=== PATIENT | female | born 1940 | race African-American/Black ===

== ENCOUNTER 2018-05-09 12:36 | Emergency (ER) | payer MEDICARE, BC ==
[~2018-05-09] VITALS: Ht 162.6 cm; Wt 86.2 kg
[2018-05-09] MEDS ORDERED: CAL-CITRATE PL1 EAC1 PO (12:52)
[2018-05-09] MEDS ORDERED: SYNTHROID100 MCG ORAL (12:52)
[2018-05-09] MEDS ORDERED: DICYCLOMINE HCL10 MG PO (12:52)
[2018-05-09] MEDS ORDERED: OMEPRAZOLE20 M2 ORAL (12:52)
[2018-05-09] MEDS ORDERED: ATORVASTATIN CA10 MG ORAL (12:52)
[2018-05-09] MEDS ORDERED: METOPROLOL TART50 M1 ORAL (12:52)
[2018-05-09] MEDS ORDERED: XARELTO10 MG ORAL (12:52)
[2018-05-09 13:41] LABS: APPEARANCE,URINE CLEAR; COLOR,URINE PALE YELLOW; PH,URINE 6 (4.5-8.0)
[2018-05-09 13:42] LABS: BILIRUBIN, URINE NEGATIVE (NEGATIVE); GLUCOSE, URINE (UA) NEGATIVE (NEGATIVE); KETONES,URINE NEGATIVE (NEGATIVE); LEUKOCYTE ESTERASE ,URINE 2+ (NEGATIVE); NITRITE,URINE NEGATIVE (NEGATIVE); PROTEIN,URINE NEGATIVE (NEGATIVE); UROBILINOGEN,URINE NORMAL MG/DL (0.0-1.0)
[2018-05-09 13:44] LABS: BASOPHILS % (AUTO) 0.9 % (0.0-2.0); EOSINOPHILS % (AUTO) 2.5 % (0.0-3.0); HEMATOCRIT 41.1 % (37.0-47.0); LYMPHOCYTES % (AUTO) 25.6 % (20.0-45.0); MEAN CORPUSCULAR VOLUME 83 FL (80-99); PLATELET COUNT 280 K/UL (150-450); RED BLOOD COUNT 4.94 M/UL (4.20-5.40); RED CELL DISTRIBUTION WIDTH 13.2 % (11.6-14.8); WHITE BLOOD COUNT 8.8 K/UL (4.8-10.8)
[2018-05-09 13:56] LABS: ANION GAP 7 mmol/L (5-15); BLOOD UREA NITROGEN 22 mg/dL (7-18); CALCIUM 10.2 MG/DL (8.5-10.1); CARBON DIOXIDE 30 MMOL/L (21-32); CHLORIDE 103 MMOL/L (98-107); CREATININE 1.3 MG/DL (0.55-1.30); POTASSIUM 4.1 MMOL/L (3.5-5.1); SODIUM 140 MMOL/L (136-145)
[2018-05-09 14:01] LABS: ALANINE AMINOTRANSFERASE 18 U/L (12-78); ALBUMIN 3.4 G/DL (3.4-5.0); ALBUMIN/GLOBULIN RATIO 0.6 (1.0-2.7); ALKALINE PHOSPHATASE 89 U/L (46-116); ASPARTATE AMINO TRANSFERASE 16 U/L (15-37); BILIRUBIN,TOTAL 0.5 MG/DL (0.2-1.0)
--- NOTE | 2018-05-09 14:12 | Emergency Room Report ---
History of Present Illness General Chief Complaint: Lower Extremity Injury Source: Patient (Bryce Anderson) Present Illness HPI 77-year-old female with significant history of hypertension controlled with amlodipine and metoprolol here complaining of pain in the right foot and ankle 3 days. Patient reports she fell on her right ankle 3 months ago, never seek any medical attention, started going to podiatrists and month ago and has been taking Motrin and Voltaren gel with some improvement. She denies any recent trauma or injury. Patient is rating the pain 6 out of 10, intermittent, worsening when walking, without radiation. Denies tingling or numbness. Denies tenderness, chest pain, SOB, palpitations, abdominal pain, nausea vomiting. She denies history of gallops. Currently on no diuretic. Swelling in the right ankle and foot noted however mild swelling is noted in the left ankle.patient mentions that her hoe runner has been giving him both angina and mitral however denies any injections of steroids (Bryce Anderson) Allergies: Coded Allergies: NO KNOWN ALLERGIES (Unverified Allergy, Unknown, 01/01/15) Patient History Past Medical History: see triage record Past Surgical History: unable to obtain Pertinent Family History: none Now: No Immunizations: UTD Reviewed Nursing Documentation: PMH: Agreed; PSxH: Agreed (Bryce Anderson) Nursing Documentation-PMH Past Medical History: No History, Except For Hx Hypertension: Yes Hx Diabetes: No - hypothyrodism Hx Cerebrovascular Accident: Yes - CVA in 1995 (Bryce Anderson) Review of Systems All Other Systems: negative except mentioned in HPI (Bryce Anderson) Physical Exam Vital Signs Date Time Temp Pulse Resp B/P (MAP) Pulse Ox O2 Delivery O2 Flow Rate FiO2 05/09/18 12:43 98.1 93 17 158/89 98 Room Air Sp02 EP Interpretation: reviewed, normal General Appearance: normal inspection, well appearing, no apparent distress, alert Head: normocephalic, atraumatic Eyes: bilateral eye normal inspection, bilateral eye PERRL ENT: normal ENT inspection, normal pharynx Neck: normal inspection, full range of motion, supple Respiratory: normal inspection, lungs clear, no rhonchi, no wheezing Cardiovascular #1: normal inspection, no edema, no murmur Cardiovascular #2: 2+ dorsalis pedis (R), 2+ dorsalis pedis (L) Gastrointestinal: normal inspection, non tender, soft Rectal: deferred Genitourinary: deferred Musculoskeletal: back normal, digits/nails normal, no calf tenderness, decreased range of motion - limping whimpering right foot down, swelling - right ankle and right foot, mild erythema of left lateral ankle Neurologic: normal inspection, alert, oriented x3, responsive, apprentice jockey III-XII nml as tested, motor strength/tone normal Psychiatric: normal inspection, judgement/insight normal, memory normal Skin: normal inspection, normal color, no rash, warm/dry, palpation normal, other - No sores or ecchymosis noted Lymphatic: normal inspection, no adenopathy (Bryce Anderson) Medical Decision Making PA Attestation all diagnostic and treatment plans were discussed with supervising physician Dr. Parker (Bryce Anderson) Diagnostic Impression: Primary Impression: Fluid retention in legs Additional Impression: Ankle sprain ER Course 77-year-old female with significant history of hypertension controlled with amlodipine and metoprolol here complaining of pain in the right foot and ankle 3 days. Patient reports she fell on her right ankle 3 months ago, never seek any medical attention, started going to podiatrists and month ago and has been taking Motrin and Voltaren gel with some improvement. She denies any recent trauma or injury. Patient is rating the pain 6 out of 10, intermittent, worsening when walking, without radiation. Denies tingling or numbness. Denies tenderness, chest pain, SOB, palpitations, abdominal pain, nausea vomiting. She denies history of gallops. Currently on no diuretic. Swelling in the right ankle and foot noted however mild swelling is noted in the left ankle.patient mentions that her hoe runner has been giving him both angina and mitral however denies any injections of steroids Ddx considered but are not limited to Right ankle sprain, fluid retention secondary to a lot of pain, gout, right ankle fracture Vital signs: are WNL, pt. is afebrile H&PE are most consistent with fluid retention and pedal edema, ankle sprain ORDERS: right ankle x-ray, CBC, CMP, UA, uric acid ED INTERVENTIONS: None required at this time. DISCHARGE: At this time pt. is stable for d/c to home. Will provide printed patient care instructions, and any necessary prescriptions. Care plan and follow up instructions have been discussed with the patient prior to discharge. (Bryce Anderson) Other X-Ray Diagnostic Results Other X-Ray Diagnostic Results : X-Ray ordered: left ankle # of Views/Limited Vs Complete: 2 View Indication: Swelling EP Interpretation: Yes PA Xray: by supervising MD, and agrees with findings. Interpretation: no dislocation, no fractures Impression: No acute disease Electronically Signed by: Bryce Henley PA-C (Bryce Anderson) Other X-Ray Diagnostic Results : Electronically Signed by: MULU xrelsy documentation reviewed by me and is accurate, Mike Ceja MD. (Mike Ceja MD) Last Vital Signs Date Time Temp Pulse Resp B/P (MAP) Pulse Ox O2 Delivery O2 Flow Rate FiO2 05/09/18 12:43 98.1 93 17 158/89 98 Room Air (Bryce Anderson) Disposition: HOME, SELF-CARE Condition: Stable Scripts Diclofenac Sodium (VOLTAREN-XR) 100 Mg Tab.er.24h 1 MG PO BID, #100 GM Prov: Bryce Anderson 05/09/18 Referrals: NON PHYSICIAN (PCP) Patient Instructions: Ankle Sprain, Edema, [id number] Additional Instructions: follow with primary care provider regarding fluid retention in legs, keep your feet elevated, avoid strenuous physical activity Bryce Anderson May 09, 2018 14:12 Mike Ceja MD May 11, 2018 04:54
[2018-05-09] MEDS ORDERED: VOLTAREN-XR100 MG PO (14:54)
[2018-05-09 15:05] VITALS: BP 144/70
--- NOTE | 2018-05-10 08:35 | Diagnostic Imaging Report ---
Indication: Right ankle pain Technique: 2 views of the right ankle Comparison: 12/03/2008 Findings: Exam is limited, due to the availability of only 2 views. No acute fractures. No dislocations. The joint spaces are preserved. Impression: Somewhat limited exam. No acute bony trauma
== END 2018-05-09 15:05 | disposition home or self-care (01) ==
LOC: EMR 14:00
DX: S93.401A Sprain of unspecified ligament of right ankle, initial encounter (principal); W19.XXXA Unspecified fall, initial encounter; Y92.9 Unspecified place or not applicable; R60.0 Localized edema; I10 Essential (primary) hypertension; E03.9 Hypothyroidism, unspecified; Z86.73 Personal history of transient ischemic attack (TIA), and cerebral infarction without residual deficits
CPT/HCPCS: 36415; 80053; 81001; 84550; 85025; 99283